=== PATIENT | male | born 1930 | race African-American/Black ===

== ENCOUNTER → 2016-07-28 | Outpatient (CLI) | payer OTHER ==
[~2016-07-28] MED LIST: ALDACTONE25 MG PO; APAP650 PO; ATENOLOL 25 MG25 M1 PO; CLARITIN10 M2 PO; CLEOCIN HCL150 MG PO; COUMADIN 4 MG TA4 M1 PO; COUMADIN 5 MG TA5 M1 PO; DIAZEPAM 5 MG5 M1 PO; FLOVENT HFA 1110 MCG INH; GLUCOSAMINE; HYDROCHLOROTHIA25 M1 PO; HYDROCHLOROTHIA25 M2 PO; MULTIVITAMINS; NEXIUM; NEXIUM40 MG PO; NITRO-DUR 0.1M0.1 M1 TD; NITRODUR; NITROSTAT0.4 MG; NORCO 5-325 TA1 EACH PO; OXYCODON-ACETA1 EAC1 PO; PREDNISONE 5 MG5 M1 PO; VIAGRA50 MG PO; XALATAN2.5 ML OPHTHALMIC; ZANTAC 150MG T150 M1 PO
== END ==
LOC: RAD 13:23
DX: J18.9 Pneumonia, unspecified organism (principal); R06.00 Dyspnea, unspecified; J98.4 Other disorders of lung

== ENCOUNTER 2016-12-02 11:49 | Inpatient (IN) | payer OTHER ==
[2016-12-02] VITALS (12 sets, daily range): BP systolic 91–146; BP diastolic 58–84
[~2016-12-02] VITALS: Ht 152.4 cm; Wt 115.0 kg
--- NOTE | ~2016-12-02 | HC ---
[facility] [place] [address] CONSULTATION Name: TRACY REDDY Room #: 215-P ADM IN M.R.#: [id number] Admission: 12/02/16 Attend Phys: Jadon Robertson MD Discharge: Date of : 32 Report #: [id number] THIS REPORT FOR: //name// CC: Jadon Mondragon MD DATE OF SERVICE: 12/03/2016 HISTORY OF PRESENT ILLNESS: The patient is an 86-year-old black male who I was asked to see in the hospital today after he was noted to be in atrial fibrillation. The patient has an extensive past medical history. He has a history of permanent atrial fibrillation and has been followed by Dr. Benavides, a organisational psychologist in [place], [place]. The patient has a history of DVT and pulmonary embolus. He has been chronically anticoagulated. He had been on atenolol for rate control of his atrial fibrillation. He denies ever having cardioversion. He apparently saw Dr. Benavides several months ago and because of slow rate of atrial fibrillation, was taken off of atenolol. He has felt well since that time. He is not very active because of his age and uses a cane. Recently, he noticed a dark stool. He had had a previous colonoscopy in 2012 and had a polyp removed. He was scheduled to have repeat colonoscopy. However, yesterday, the patient had a meeting when he had the sudden onset of pain in his right thigh after walking up a flight of stairs. His whole right leg then felt painful. He had difficulty standing on leg. He called an ambulance and was brought here to [facility]. His INR was 2.6. His right leg was numb. He was found to have thrombosis of the right femoral artery. Yesterday, he underwent right femoral artery embolectomy by Dr. Springer. I was asked to see him for further evaluation and treatment. He denies any history of myocardial infarction or chest pain. He does get short of breath when he exerts himself. He has chronic edema. He denies any palpitations, lightheadedness. PAST MEDICAL HISTORY: Otherwise significant for prostate surgery, hernia repair, cataract extraction, rotator cuff surgery. He had a kidney repair in the past. He has had tonsillectomy. He has a history of sleep apnea, but cannot tolerate CPAP, so he is on oxygen at night time. He does have a history of hypertension, chronic back pain. MEDICATIONS: Consists of Ventolin inhaler, hydrochlorothiazide, spironolactone, warfarin and oxycodone. ALLERGIES: HE HAS PREVIOUS INTOLERANCE TO DEMEROL. FAMILY HISTORY: His father of heart attack. SOCIAL HISTORY: He is . He and his live in [place], [place]. 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 Quit smoking years ago, rarely drinks alcohol. [facility] [address] [place] [address] CONSULTATION Name: TRACY REDDY RODOLFO Room #: 215-P [facility] IN M.R.#: [id number] Admission: 12/02/16 Attend Phys: Jadon Robertson MD Discharge: Date of : 32 Report #: [id number] REVIEW OF SYSTEMS: He is overweight, standing 5 feet 7 inches, weighing 260 pounds. He has no history of stroke, peptic ulcer disease, liver disease. He had prostate cancer in the past. No psychiatric illness. PHYSICAL EXAMINATION: GENERAL: Revealed a large, elderly male lying in bed. He appeared in no distress. VITAL SIGNS: He had a blood pressure of 120/80, pulse is 70, he is afebrile. HEENT: He was anicteric. Conjunctivae pink. Mucous membranes appeared moist. NECK: Veins difficult to assess due to obesity. CHEST: Clear to auscultation. CARDIOVASCULAR: Irregular rhythm. ABDOMEN: Obese, soft, nontender. EXTREMITIES: Had pitting edema. Dorsalis pedis pulse 2+ left, cannot palpate right. SKIN: Warm, dry. NEUROLOGIC: Nonfocal. PSYCHIATRIC: His mood is appropriate. His ECG on admission yesterday showed atrial fibrillation with a controlled ventricular response rate. Compared to previous ECG in 01/2011, atrial fibrillation is new. His workup, he had a previous nuclear stress test in 2012 that showed no ischemia. Echocardiogram in 2013 showed ejection fraction of 60%, left atrial enlargement with mild aortic insufficiency and tricuspid insufficiency. His arterial Doppler done yesterday on an emergent basis showed a proximal arterial occlusion of the right common iliac or external iliac artery. Venous duplex scan showed no DVT. He had a CTA of the leg that showed a cyst on the kidney, patent abdominal aorta, tortuous iliacs, right common femoral artery contained a large embolus. He had a chest x-ray done in July of this year that showed scarring of the lung. His lab work: Sodium 142, creatinine 1.1. His INR on admission yesterday was only 1.2. His white blood cell count on admission yesterday was 3.9. His hemoglobin is 14.3, platelet count 161,000. IMPRESSION AND RECOMMENDATIONS: 1. Right femoral artery thrombosis, suspect secondary to embolus from permanent atrial fibrillation. Recommend anticoagulation. The patient required embolectomy. 2. Permanent atrial fibrillation. Rate controlled. He will need anticoagulation, maintain INR of 2-3. 3. History of deep venous thrombosis and pulmonary embolism. Recommend chronic anticoagulation. 4. Hypertension. The patient has been on diuretics. 5. Chronic edema. The patient is on diuretics. 6. Obesity. [facility] [address] [place] [address] CONSULTATION Name: TRACY REDDY RODOLFO Room #: 215-P [facility] IN M.R.#: [id number] Admission: 12/02/16 Attend Phys: Jadon Robretson MD Discharge: Date of : 32 Report #: [id number] 7. Sleep apnea. The patient is on nocturnal oxygen. 8. History of prostate cancer. 9. History of dark stools. The patient is not anemic. He eventually will need a colonoscopy. 10. History of colon polyp. <ELECTRONICALLY SIGNED> By: aJden Diggs MD, FACC 12/06/16 1001 1706 1800 Jaden Diggs MD, FACC /nt
--- NOTE | ~2016-12-02 | EKG ---
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
--- NOTE | ~2016-12-02 | O ---
[facility] [place] [address] OPERATIVE REPORT Name: TRACY REDDY Room #: 215-P ADM IN M.R.#: [id number] Admission: 12/02/16 Attend Phys: Jadon Robertson MD Discharge: Date of : 32 Report #: [id number] THIS REPORT FOR: //name// CC: Geoff Benavides Jr, MD [facility] Jadon Mondragon DATE OF SERVICE: 12/02/2016 PREOPERATIVE DIAGNOSES: 1. Acute right lower extremity ischemia. 2. Right common femoral artery and profunda femoral artery embolus. FINAL DIAGNOSES: 1. Acute right lower extremity ischemia. 2. Right common femoral artery and profunda femoral artery embolus. OPERATIVE PROCEDURE PERFORMED: Right femoral endarterectomy. SURGEON: Evelio Springer M.D. RECEIVABLE EXECUTIVE: Chen. ANESTHESIA: General. OPERATIVE INDICATIONS: The patient is an 86-year-old -Tunis[place] male with a known history of atrial fibrillation. The patient has been on warfarin chronically. However, his INR was subtherapeutic at 1.2. He has presented to the emergency room with acute onset of numbness and weakness of his right leg. On examination, the leg was cool, but not ice cold compared to the left leg. Doppler signals were not discernible. The patient did have intact motor function, but significant weakness and also some degree of sensory function. Arterial duplex examination of the extremities showed evidence of thrombus in the common femoral, profunda femoral, and superficial femoral arteries with evidence of three-vessel runoff. The patient was brought to the operating room now emergently for femoral artery embolectomy. OPERATIVE SUMMARY: The patient was brought into the operating room and placed on the OR table in supine position. General anesthesia was induced. The patient was prepped and draped in sterile fashion with chlorhexidine. An oblique incision was made in the right groin. We dissected down through subcutaneous tissues. We incised the femoral sheath and exposed the common, superficial, and profunda femoral arteries. The patient was given a dose of 15,000 units of heparin. We encircled the profunda femoral and the superficial femoral artery with vessel loops. The common femoral artery was clamped and then the profunda and superficial femoral. We incised the artery and we were [address] [address] OPERATIVE REPORT Name: TRACY REDDY Room #: 215-P [facility] IN [facility].#: [id number] Admission: 12/02/16 Attend Phys: Jadon Robertson MD Discharge: Date of : 32 Report #: [id number] immediately encountered fresh thrombus. We then passed #4 and #5 embolectomy catheters distally in the SFA making multiple passes until we obtained good backbleeding. Likewise, we made multiple passes in the profunda femoral artery until brisk backbleeding was encountered as well. Lastly, the common femoral artery was embolectomized with a #5 embolectomy catheter. Organized thrombus was removed from this vessel as it was from the profunda and superficial femoral arteries. Once we had good inflow, we flushed all artery sites with heparinized saline solution. We then closed the arteriotomy in a running fashion with 5-0 Prolene suture. Prior to completing the closure, the site was flushed both retrograde and antegrade and deaired. Flow was then restored down the profunda femoral artery and then finally the superficial femoral artery. Excellent Doppler signals were noted in the profunda and superficial femoral arteries. Protamine was given to reverse the heparin. Once satisfactory hemostasis was achieved, we closed the wound in multiple layers with absorbable suture. The procedure was completed, the patient was taken to the ICU in stable condition. The operative blood loss was approximately 200 mL. No intraoperative complications were noted and all sponge and needle counts were reported as correct. <ELECTRONICALLY SIGNED> By: Evelio Springer MD 12/09/16 1827 1650 1740 Evelio Springer MD /nt
--- NOTE | ~2016-12-02 | S ---
[facility] [place] [address] SURGICAL PATH RPT PROCEDURE Name: TRACY REDDY [facility] Room #: 215-P ADM IN M.R.#: [id number] Admission: 12/02/16 Date of : 32 Discharge: Report #: [id number] Path Case #: [id number] PATHOLOGY REPORT COLLECTION DATE: 12/02/2016 RECEIVED DATE: 12/03/2016 SUBMITTING PHYS: Dr. Evelio Springer OTHER PHYS: Dr. Jadon Mondragon SPECIMEN(S) RECEIVED: A.Thrombus right femoral artery * * * * * * * * * * * * FINAL DIAGNOSIS: Thrombus, right femoral artery, removal: - Consistent with a thrombus. (IUV:mml; 12/06/2016) PATHOLOGIST: Mellisa Castano M.D. REPORT ELECTRONICALLY SIGNED BY: Mellisa Castano M.D. DATE/TIME: 12/06/2016 15:58 * * * * * * * * * * * * GROSS PATHOLOGY: The specimen is received in formalin, labeled "Tracy Reddy thrombus right femoral artery". Received are multiple tubelike segments of dark redtan, soft tissue ranging in length from 0.4 cm to 1.8 cm and are approximately 0.5 cm in diameter. Sectioning reveals a dark red, hemorrhagic cut surface. Engraver Block sections are submitted in cassette A1. (SNA; 12/03/2016) CLINICAL HISTORY: Embolus right femoral artery INITIAL CPT CODE(S): A; 59048 Professional services performed by [facility] at [facility] [address] [place] [address] Technical services performed by [facility] at [address] [place] [address]. [facility] [address] [place] [address] SURGICAL PATH RPT PROCEDURE Name: TRACY REDDY Room #: 215-P [facility] IN .R.#: [id number] Admission: 12/02/16 Date of : 32 Discharge: Report #: [id number] Path Case #: [id number] [facility] [address] [place] [id number] PHONE: [phone] DIRECTOR: Bhargav Garcia M.D. * * * END OF REPORT * * *
--- NOTE | ~2016-12-02 | 2DMMODE ---
[facility] [address] [employer] [place] [address] 2 D/M-MODE ECHOCARDIOGRAM Name: TRACY REDDY Room #: 215-P ADM IN M.R.#: [id number] Admission: 12/02/16 Attend Phys: Jadon Robretson Discharge: Date of : 32 Date of Service: 12/07/16 1237 Report #: [id number] THIS REPORT FOR: //name// ADDENDUM APPROVED REPORT Study performed: 12/06/2016 13:34:58 EXAM: Comprehensive 2D, Doppler, and color-flow Echocardiogram Patient Location: Bedside Room #: 215 Status: routine BSA: 2.32 BP: 139/80 mmHg Other Information Study Quality: Technically Difficult Indications Atrial Fibrillation Hypertension/HDD 2D Dimensions RVDd: 26.77 mm LVEF(%): 61.08 (>50%) IVSd: 13.02 (7-11mm) LVOT Diam: 16.61 (18-24mm) LVDd: 43.63 mm PWd: 13.40 (7-11mm) LVDs: 29.45 (25-40mm) Aortic Root: 20.58 mm IVC: 14.00 mm Bustillos's LVEF: 61.08 % Volumes Left Atrial Volume (Systole) Single Plane 4CH: 66.53 mL Single Plane 2CH: 53.18 mL LA ESV Index: 28.00 mL/m2 Aortic Valve AoV Peak Cesar.: 1.56 m/s AO Peak Gr.: 9.69 mmHg LVOT Max P.68 mmHg LVOT Max V: 1.08 m/s ANSHU Vmax: 1.51 cm2 Mitral Valve MV Decel. Time: 231.45 ms MV E Max Cesar.: 1.02 m/s [facility] [address] [place] [address] 2 D/M-MODE ECHOCARDIOGRAM Name: TRACY REDDY [facility] Room #: 215-P [facility] IN M.R.#: [id number] Admission: 12/02/16 Attend Phys: Jadon Robertson Discharge: Date of : 32 Date of Service: 12/07/16 1237 Report #: [id number] IVRT: 131.49 ms Pulmonary Valve PV Peak Cesar.: 0.87 m/s PV Peak Gr.: 3.03 mmHg Tricuspid Valve TR Peak Cesar.: 2.51 m/s RAP Estimate: 5.00 mmHg TR Peak Gr.: 25.28 mmHg Left Ventricle The left ventricle is normal size. Regional wall motion is not well visualized but grossly normal. Mild concentric left ventricular hypertrophy. The overall left ventricular systolic function appears normal. No left ventricular thrombus noted. LVEF is 65%. This study is not technically sufficient to allow evaluation of the LV diastolic function due to atrial fibrillation. Right Ventricle The right ventricle is normal size. The right ventricular systolic function is normal. Atria Left atrium is at the upper limits of normal. The right atrium size is normal. Aortic Valve The aortic valve is not well visualized. Mild to moderate aortic regurgitation. There is no aortic valvular stenosis. Mitral Valve Moderately calcified anterior mitral leaflet Mild mitral regurgitation. No evidence of mitral valve stenosis. Tricuspid Valve The tricuspid valve is normal in structure. There is trace to mild tricuspid regurgitation. The right atrial pressure is estimated at 5 mmHg. PAP is estimated at 30 mmHg. Pulmonic Valve Pulmonic valve is not well visualized. Great Vessels The aortic root is normal in size. IVC is normal in size and collapses >50% with inspiration. Pericardium [facility] [address] [place] [address] 2 D/M-MODE ECHOCARDIOGRAM Name: TRACY REDDY Room #: 215-P [facility] IN M.R.#: [id number] Admission: 12/02/16 Attend Phys: Jadon Robertson Discharge: Date of : 32 Date of Service: 12/07/16 1237 Report #: [id number] There is no pericardial effusion. <Conclusion> The overall left ventricular systolic function appears normal. Regional wall motion is not well visualized but grossly normal. LVEF is 65%. The aortic valve is not well visualized. No aortic valvular stenosis. Mild to moderate aortic regurgitation. Moderately calcified anterior mitral leaflet. Mild mitral regurgitation. Pulmonary artery pressure of 30-35mmHg There is no pericardial effusion. No visualized LV thrombus <ELECTRONICALLY SIGNED> By: Micah Dumont MD, FACC 12/07/16 1237 1237 1237 Micah Dumont MD, FACC /INF
--- NOTE | ~2016-12-02 | EKG ---
[address] [address] ELECTROCARDIOGRAM REPORT Name: MOHINI REDDYMIE RODOLFO Room #: 215- ADM IN M.R.#: [id number] Admission: 12/02/16 Attend Phys: Jadon Robertson MD Discharge: Date of : 32 Report #: [id number] THIS REPORT FOR: //name// [facility] Test Date: 2016-12-09 Test Time: 08:41:02 Pat Name: TRACY REDDY Department: Room: 215 P Gender: M Door Opener: : 1930 Requested By: Jadon Robertson Order Number: [id number] MD: Polo Zamarripa Measurements Intervals [place] Rate: 63 P: [place]: QRS: -14 QRSD: 91 T: 30 QT: 417 QTc: 427 Interpretive Statements Atrial fibrillation Abnormal R-wave progression, early transition Nonspecific ST and T wave abnormality Compared to ECG 12/02/2016 11:57:14 No significant change was found Electronically Signed On 12-09-2016 9:10:22 CDT by Polo Zamarripa [email or web address] <ELECTRONICALLY SIGNED> By: Polo Zamarripa MD, [facility] 12/09/16 0910 0841 0841 Polo Zamarripa MD, [facility] /EPI
[2016-12-02] MEDS ORDERED: COMBIVENT INH (12:08)
[2016-12-02 12:19] LABS: INR 1.2; PROTIME 12.7 Seconds (9.3-11.4)
[2016-12-02 13:19] LABS: ABSOLUTE NEUTROPHILS 2.2 thou/uL (1.4-8.2); BASOPHILS 0.9 % (0.0-2.0); EOSINOPHILS 1.7 % (0.0-3.0); HEMATOCRIT 41.4 % (42.0-52.0); HEMOGLOBIN 14.3 gm/dL (14.0-18.0); MCH 32.9 pg (26.0-34.0); MCHC 34.5 g/dL (28.0-37.0); MCV 95.4 fL (80.0-100.0); MONOCYTES 5.2 % (1.0-8.0); PLATELET COUNT 162 thou/uL (150-400); POLYS 55.2 % (36.0-66.0); RBC 4.34 mil/uL (4.50-6.00); RDW 13.7 % (10.5-14.5); WBC 3.9 thou/uL (4.0-11.0)
[2016-12-02 13:20] LABS: MANUAL DIFF NO
[2016-12-02 13:22] LABS: CALCIUM 9.4 mg/dL (8.5-10.1); CREATININE 1.3 mg/dL (0.7-1.3); POTASSIUM 3.8 mmol/L (3.5-5.1)
[2016-12-03] VITALS (24 sets, daily range): BP systolic 105–139; BP diastolic 55–76
[2016-12-03 04:39] LABS: HEMATOCRIT 42.1 % (42.0-52.0); HEMOGLOBIN 14.5 gm/dL (14.0-18.0); MCH 33.1 pg (26.0-34.0); MCHC 34.5 g/dL (28.0-37.0); MCV 95.9 fL (80.0-100.0); RBC 4.39 mil/uL (4.50-6.00); RDW 13.9 % (10.5-14.5); WBC 9.2 thou/uL (4.0-11.0)
[2016-12-03 04:48] LABS: CALCIUM 9.1 mg/dL (8.5-10.1); CREATININE 1.1 mg/dL (0.7-1.3); POTASSIUM 4.1 mmol/L (3.5-5.1)
[2016-12-03 10:52] LABS: INR 1.2; PROTIME 12.4 Seconds (9.3-11.4)
[2016-12-04] VITALS (7 sets, daily range): BP systolic 115–139; BP diastolic 65–665
[2016-12-04 06:04] LABS: ABSOLUTE NEUTROPHILS 9.4 thou/uL (1.4-8.2); BASOPHILS 0.4 % (0.0-2.0); EOSINOPHILS 0.3 % (0.0-3.0); HEMATOCRIT 39.9 % (42.0-52.0); HEMOGLOBIN 13.6 gm/dL (14.0-18.0); LYMPHOCYTES 13.9 % (24.0-44.0); MCH 32.6 pg (26.0-34.0); MCV 95.9 fL (80.0-100.0); MONOCYTES 4.9 % (1.0-8.0); PLATELET COUNT 148 thou/uL (150-400); POLYS 80.5 % (36.0-66.0); RBC 4.16 mil/uL (4.50-6.00); RDW 14.2 % (10.5-14.5); WBC 11.7 thou/uL (4.0-11.0)
[2016-12-04 06:08] LABS: MANUAL DIFF NO
[2016-12-04 06:16] LABS: INR 1.2; PROTIME 11.9 Seconds (9.3-11.4)
[2016-12-04 06:26] LABS: ALBUMIN 3.1 g/dL (3.4-5.0); CALCIUM 9.2 mg/dL (8.5-10.1); TOTAL BILIRUBIN 0.5 mg/dL (<0.1-1.0)
[2016-12-04 06:27] LABS: CHOLESTEROL 186 mg/dL (<200); HDL CHOLESTEROL 85 mg/dL (>40); LDL CHOLESTEROL 95 mg/dL (<100); TC:HDL 2.2 Ratio (Not establshd); TRIGLYCERIDE 34 mg/dL (<150); VLDL 7 mg/dL (<40)
[2016-12-04 06:28] LABS: SERUM ASSESSMENT Clear
[2016-12-05 04:21] VITALS: BP 133/75
[2016-12-05 05:03] LABS: HEMATOCRIT 40.2 % (42.0-52.0); HEMOGLOBIN 13.9 gm/dL (14.0-18.0); MCH 32.8 pg (26.0-34.0); MCHC 34.6 g/dL (28.0-37.0); MCV 94.9 fL (80.0-100.0); RBC 4.23 mil/uL (4.50-6.00); RDW 13.8 % (10.5-14.5); WBC 7.1 thou/uL (4.0-11.0)
[2016-12-05 05:15] LABS: INR 1.3; PROTIME 12.9 Seconds (9.3-11.4)
[2016-12-05 08:15] VITALS: BP 130/58
[2016-12-05 12:30] VITALS: BP 130/65
[2016-12-05 16:01] VITALS: BP 142/70
[2016-12-05 20:21] VITALS: BP 115/64
[2016-12-06 05:34] VITALS: BP 132/77
[2016-12-06 06:22] LABS: HEMATOCRIT 40.8 % (42.0-52.0); HEMOGLOBIN 13.8 gm/dL (14.0-18.0); MCH 32.2 pg (26.0-34.0); MCHC 33.9 g/dL (28.0-37.0); MCV 94.8 fL (80.0-100.0); RBC 4.3 mil/uL (4.50-6.00); RDW 13.5 % (10.5-14.5); WBC 6.3 thou/uL (4.0-11.0)
[2016-12-06 06:28] LABS: CALCIUM 9.2 mg/dL (8.5-10.1); POTASSIUM 3.4 mmol/L (3.5-5.1)
[2016-12-06 06:56] LABS: INR 1.3; PROTIME 13.4 Seconds (9.3-11.4)
[2016-12-06 08:01] VITALS: BP 139/80
[2016-12-06 15:30] VITALS: BP 149/76
[2016-12-06 19:56] VITALS: BP 116/74
[2016-12-07 03:33] LABS: APTT 55.6 Seconds (24.5-32.8); INR 1.5; PROTIME 15.6 Seconds (9.3-11.4)
[2016-12-07 03:51] LABS: CALCIUM 9.7 mg/dL (8.5-10.1); CREATININE 1.1 mg/dL (0.7-1.3); POTASSIUM 3.6 mmol/L (3.5-5.1)
[2016-12-07 04:06] LABS: ABSOLUTE NEUTROPHILS 3.1 thou/uL (1.4-8.2); BASOPHILS 0.5 % (0.0-2.0); EOSINOPHILS 3.7 % (0.0-3.0); HEMATOCRIT 42.2 % (42.0-52.0); HEMOGLOBIN 14.3 gm/dL (14.0-18.0); LYMPHOCYTES 39.3 % (24.0-44.0); MCH 32.4 pg (26.0-34.0); MCV 95.4 fL (80.0-100.0); MONOCYTES 7.6 % (1.0-8.0); PLATELET COUNT 180 thou/uL (150-400); POLYS 48.9 % (36.0-66.0); RBC 4.43 mil/uL (4.50-6.00); RDW 13.8 % (10.5-14.5); WBC 6.3 thou/uL (4.0-11.0)
[2016-12-07 04:10] LABS: MANUAL DIFF NO
[2016-12-07 04:24] VITALS: BP 1369/87
[2016-12-07 08:01] VITALS: BP 136/79
[2016-12-07 11:37] VITALS: BP 123/75
[2016-12-07 16:26] VITALS: BP 113/74
[2016-12-07 16:33] VITALS: BP 132/66
[2016-12-07 20:25] VITALS: BP 124/81
[2016-12-08 03:23] LABS: INR 1.8; PROTIME 18.7 Seconds (9.3-11.4)
[2016-12-08 03:48] VITALS: BP 138/72
[2016-12-08 08:21] VITALS: BP 158/81
[2016-12-08 11:55] VITALS: BP 117/65
[2016-12-08 16:31] VITALS: BP 140/64
[2016-12-08 19:54] VITALS: BP 136/66
[2016-12-09 03:16] VITALS: BP 132/55
[2016-12-09 03:36] LABS: ABSOLUTE NEUTROPHILS 2.8 thou/uL (1.4-8.2); BASOPHILS 0.7 % (0.0-2.0); EOSINOPHILS 4.2 % (0.0-3.0); HEMATOCRIT 41.9 % (42.0-52.0); HEMOGLOBIN 14.6 gm/dL (14.0-18.0); LYMPHOCYTES 38.7 % (24.0-44.0); MCH 32.8 pg (26.0-34.0); MCHC 34.8 g/dL (28.0-37.0); MCV 94.2 fL (80.0-100.0); MONOCYTES 8.8 % (1.0-8.0); PLATELET COUNT 185 thou/uL (150-400); POLYS 47.6 % (36.0-66.0); RBC 4.45 mil/uL (4.50-6.00); RDW 13.7 % (10.5-14.5); WBC 5.9 thou/uL (4.0-11.0)
[2016-12-09 03:39] LABS: MANUAL DIFF NO
[2016-12-09 03:51] LABS: CALCIUM 9.7 mg/dL (8.5-10.1); CREATININE 1.2 mg/dL (0.7-1.3); MAGNESIUM 1.5 mg/dL (1.8-2.4); POTASSIUM 3.7 mmol/L (3.5-5.1)
[2016-12-09 03:54] LABS: PROTIME 28.5 Seconds (9.3-11.4)
[2016-12-09 04:08] LABS: INR 2.8
[2016-12-09 07:15] VITALS: BP 128/78
[2016-12-09 07:54] VITALS: BP 137/98
[2016-12-09] MEDS ORDERED: COUMADIN7.5 MG PO (11:15)
[2016-12-09] MEDS ORDERED: DUONEB 2.5-0.5 M3 ML INH (11:15)
[2016-12-09] MEDS ORDERED: CASODEX 50 MG T50 M1 PO (11:15)
[2016-12-09] MEDS ORDERED: ALLOPURINOL 10100 M2 PO (11:15)
[2016-12-09 11:32] VITALS: BP 128/78
== END 2016-12-09 19:00 | DRG 270 ==
LOC: ER 11:49 → ICU 17:44 → EROBS 17:44 → 4W 18:43 → TBACV 19:23 → ICU 21:21 → 2N 12-03 14:04
PROVIDERS: Emergency Medicine; Hospitalist; Internal Medicine; Internal Medicine Cardiovascular Disease; Internal Medicine Endocrinology, Diabetes & Metabolism; Nurse Practitioner; Nurse Practitioner Acute Care
PROC: 04CK3ZZ Extirpation of Matter from Right Femoral Artery, Percutaneous Approach (ICD-10-PCS; principal; 2016-12-02)
DX: I74.3 Embolism and thrombosis of arteries of the lower extremities (principal); N17.0 Acute kidney failure with tubular necrosis; Z68.42 Body mass index [BMI] 45.0-49.9, adult; I10 Essential (primary) hypertension; E66.9 Obesity, unspecified; N40.0 Benign prostatic hyperplasia without lower urinary tract symptoms; G47.33 Obstructive sleep apnea (adult) (pediatric); E11.51 Type 2 diabetes mellitus with diabetic peripheral angiopathy without gangrene; I48.2 Chronic atrial fibrillation; C61 Malignant neoplasm of prostate; D69.6 Thrombocytopenia, unspecified; Z79.01 Long term (current) use of anticoagulants; Z79.899 Other long term (current) drug therapy; Z92.21 Personal history of antineoplastic chemotherapy; Z86.718 Personal history of other venous thrombosis and embolism; Z87.891 Personal history of nicotine dependence; Z86.711 Personal history of pulmonary embolism; Z90.79 Acquired absence of other genital organ(s); Z88.8 Allergy status to other drugs, medicaments and biological substances; Z82.49 Family history of ischemic heart disease and other diseases of the circulatory system
CPT/HCPCS: 10078; 10081; 50010; 50101; 50386; 50417; 50455; 51165; 51301; 55264; 56524; 56526; 56527; 62110; 62900; 70005

== ENCOUNTER 2016-12-20 23:44 | Emergency (ER) | payer OTHER ==
[~2016-12-20] VITALS: Ht 172.7 cm; Wt 113.0 kg
--- NOTE | ~2016-12-20 | EKG ---
[address] [place] [address] ELECTROCARDIOGRAM REPORT Name: TRACY REDDY RODOLFO Room #: 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 : 1930 Requested By: Tressa Knight Order Number: [id number] MD: Polo Zamarripa Measurements Intervals [place] Rate: 84 P: [place]: QRS: -14 QRSD: 96 T: 22 QT: 370 QTc: 438 Interpretive Statements Atrial fibrillation Abnormal R-wave progression, early transition Baseline wander in lead(s) V6 Compared to ECG 12/09/2016 08:41:02 No significant change was found Electronically Signed On 12-21-2016 17:53:49 CDT by Polo Zamarripa [email or web address] <ELECTRONICALLY SIGNED> By: Polo Zamarripa MD, [facility] 12/21/16 1613 2355 6985 Polo Zamarripa MD, [facility] /EPI
[~2016-12-20 23:44] MED LIST changes: +ALLOPURINOL 10100 M2 PO; +CASODEX 50 MG T50 M1 PO; +COMBIVENT INH; +COUMADIN7.5 MG PO; +DUONEB 2.5-0.5 M3 ML INH
[2016-12-21 00:17] LABS: ABSOLUTE NEUTROPHILS 2.1 thou/uL (1.4-8.2); BASOPHILS 1.1 % (0.0-2.0); EOSINOPHILS 3.5 % (0.0-3.0); HEMATOCRIT 41.7 % (42.0-52.0); HEMOGLOBIN 14.5 gm/dL (14.0-18.0); LYMPHOCYTES 47.7 % (24.0-44.0); MCH 32.6 pg (26.0-34.0); MCHC 34.8 g/dL (28.0-37.0); MCV 93.6 fL (80.0-100.0); MONOCYTES 6.9 % (1.0-8.0); PLATELET COUNT 195 thou/uL (150-400); POLYS 40.8 % (36.0-66.0); RBC 4.46 mil/uL (4.50-6.00); RDW 13.7 % (10.5-14.5); WBC 5.1 thou/uL (4.0-11.0)
[2016-12-21 00:20] LABS: MANUAL DIFF NO
[2016-12-21 00:26] LABS: ANION GAP 8 mmol/L (7-16); BUN 18 mg/dL (7-18); CALCIUM 9.7 mg/dL (8.5-10.1); CHLORIDE 103 mmol/L (98-107); CO2 28 mmol/L (21-32); CREATININE 1.1 mg/dL (0.7-1.3); GLUCOSE 107 mg/dL (74-106); POTASSIUM 3.6 mmol/L (3.5-5.1); SODIUM 139 mmol/L (136-145)
[2016-12-21 00:31] LABS: APTT 27.8 Seconds (24.5-32.8); INR 1.1; PROTIME 11.7 Seconds (9.3-11.4)
[2016-12-21 00:35] LABS: TROPONIN-I < 0.04 ng/mL (<0.04-0.07)
[2016-12-21 03:44] VITALS: BP 136/63
== END 2016-12-21 03:47 | disposition home or self-care (01) ==
LOC: ER 23:44
PROVIDERS: Emergency Medicine
DX: M79.604 Pain in right leg (principal); R79.1 Abnormal coagulation profile; I10 Essential (primary) hypertension; I48.91 Unspecified atrial fibrillation; M17.0 Bilateral primary osteoarthritis of knee; Z85.46 Personal history of malignant neoplasm of prostate; Z98.890 Other specified postprocedural states; Z87.891 Personal history of nicotine dependence; Z88.1 Allergy status to other antibiotic agents

== ENCOUNTER → 2017-02-08 | Outpatient (CLI) | payer OTHER | LOC: ULTRA 12:18 | DX: R60.9 Edema, unspecified (principal); M79.89 Other specified soft tissue disorders ==

== ENCOUNTER → 2017-06-16 | Outpatient (CLI) | payer OTHER ==
[~2017-06-16] VITALS: Ht 172.7 cm; Wt 108.9 kg
[~2017-06-16] MED LIST changes: +ALLOPURINOL 10100 M3 PO; +CHOLESTYRAMINE P4 GM PO; +ELIQUIS5 MG PO; +FLAX SEED OIL1000 MG PO; -FLOVENT HFA 1110 MCG INH; +FLOVENT HFA 4444 MCG INH; +GLUCOSAMINE S1000 M3 PO; +MEGA MULTIVIT1 EAC1 PO; +NITRO-DUR 0.1M0.1 M1 TOP; -NITRODUR; -NITROSTAT0.4 MG; +NITROSTAT0.4 MG SUBLING; +OMEPRAZOLE40 MG PO; +OXYCODONE HCL 55 MG PO; +RED YEAST RICE600 M1 PO
--- NOTE | ~2017-06-16 | P ---
[facility] [place] [address] PROCEDURE REPORT Name: TRACY REDDY Room #: REG [facility]#: [id number] Admission: 06/16/17 Attend Phys: Mario Alberto Diaz MD Discharge: Date of : 32 Report #: [id number] THIS REPORT FOR: //name// CC: Dr. Silas Benavides Jr, MD [facility] Silas Mondragon OUTPATIENT UPPER ENDOSCOPY REPORT BRIEF HISTORY: The patient is an 87-year-old male who is on anticoagulation due to pulmonary emboli and AFib. He has had intermittent black stools. He has also had problems with diarrhea. There is a prior history of ulcer disease. He also has reflux disease. PREOPERATIVE DIAGNOSIS: Intermittent black stools and diarrhea. POSTOPERATIVE DIAGNOSIS: Modest diffuse gastritis without ulcers. MEDICATIONS: Deep sedation with propofol per anesthesia. SPECIMENS: 1. Small bowel biopsies to rule out celiac disease. 2. Biopsies of gastritis to rule out H. pylori. ESTIMATED BLOOD LOSS: 3 mL. PROCEDURE: EGD with biopsy. FINDINGS: Prior to propofol sedation, procedure of upper endoscopy was discussed with the patient as well as potential risks and its complications. He indicates he understands and desires to proceed. DESCRIPTION OF PROCEDURE: With the patient in left lateral decubitus position, the Freebeepayi video endoscope was inserted in the cervical esophagus under direct vision without difficulty. Examination of this organ through its entire length revealed normal esophageal mucosa down the squamocolumnar junction. The squamocolumnar junction was inspected and noted to be unremarkable. No ulcers or erosions were seen. There is no evidence of King's mucosa. A significant hiatus hernia was not seen. Strictures were not seen. Scope was advanced in the stomach, was examined on end view as well as retroflexed views. There was an erythematous antral gastritis. No ulcers were seen. No bleeding lesions were seen. Vascular ectasias were not seen. Upon retroflexion, no abnormalities were seen. Specifically, a mass was not seen in the cardia. The pylorus, duodenal bulb and postbulbar sweep were all inspected and noted to be within normal limits. At that point, the scope was withdrawn and careful [address] [address] PROCEDURE REPORT Name: TRACY REDDY RODOLFO Room #: REG [facility].#: [id number] Admission: 06/16/17 Attend Phys: Mario Alberto Diaz MD Discharge: Date of : 32 Report #: [id number] circumferential views confirmed the above findings. The patient tolerated the procedure well. CONDITION OF THE PATIENT UPON DISCHARGE: Following procedure, the patient was drowsy and arousable. He was then prepared for colonoscopy. INSTRUCTIONS TO THE PATIENT AND FAMILY AT THE TIME OF DISCHARGE: I do not see any bleeding lesions or ulcer disease. We will follow up on biopsies obtained today. If he has further black stools, would suggest obtaining hemoglobin as well as stool Hemoccult. He does have diarrhea at this point in time, should continue his cholestyramine. We will proceed with colonoscopy at this time. <ELECTRONICALLY SIGNED> By: Mario Alberto Diaz MD 06/16/17 0916 0759 0905 Mario Alberto Diaz MD /nt
--- NOTE | ~2017-06-16 | S ---
[facility] [place] [address] SURGICAL PATH RPT PROCEDURE Name: MOHINI REDDYMIE RODOLFO Room #: REG [facility]#: [id number] Admission: 06/16/17 Date of : 32 Discharge: Report #: [id number] Path Case #: [id number] PATHOLOGY REPORT COLLECTION DATE: 06/16/2017 RECEIVED DATE: 06/16/2017 SUBMITTING PHYS: Dr. Mario Alberto Diaz OTHER PHYS: Dr. Geoff Mondragon SPECIMEN(S) RECEIVED: A.Small bowel bx B.Gastritis C.Random colon bx * * * * * * * * * * * * FINAL DIAGNOSIS: A. Small bowel bx: - Duodenal mucosa with intact villous architecture and no increase in intraepithelial lymphocytes. B. Gastritis: - Mild chronic inactive gastritis. - Small detached foci of intestinal metaplasia present; negative for dysplasia. - An H. pylori immunostain is negative (Block B1; appropriately reactive control). C. Random colon bx: - Fragments of unremarkable colonic mucosa. - No evidence of microscopic colitis or inflammatory bowel disease. PATHOLOGIST: Evelio Garcia M.D. REPORT ELECTRONICALLY SIGNED BY: Evelio Garcia M.D. DATE/TIME: 06/17/2017 08:43 * * * * * * * * * * * * GROSS PATHOLOGY: A. Received in formalin labeled "Tracy Reddy Sr, small bowel rule out celiac" is a 1.2 x 0.5 x 0.1 cm aggregate of zambrano-brown soft tissue. The specimen is submitted in cassette A1. B. Received in formalin labeled "Tracy Reddy Sr, gastritis rule out H. pylori" is a 0.6 x 0.5 x 0.1 cm aggregate of zambrano-brown soft tissue. The specimen is submitted in cassette B1. C. Received in formalin labeled "Tracy Rdedy Sr, random colon biopsy rule out colitis" is a 1.4 x 0.6 x 0.1 cm portion of zambrano-brown soft tissue. The specimen is submitted in cassette C1. ([facility]; 06/16/2017) [address] [address] SURGICAL PATH RPT PROCEDURE Name: TRACY REDDY RODOLFO Room #: REG [facility]#: [id number] Admission: 06/16/17 Date of : 32 Discharge: Report #: [id number] Path Case #: [id number] CLINICAL HISTORY: Diarrhea, black stools, GERD, history of ulcers, gastritis, history of polyps, diarrhea. INITIAL CPT CODE(S): A; 75367 B; 53835, 08515 C; 63150 Professional services performed by [facility] at [address], [place] [address] Technical services performed by [facility] at [address] [place] [address], [address], [place] [address]. [facility] [address] [address] PHONE: [phone] DIRECTOR: Bhargav Garcia M.D. * * * END OF REPORT * * *
--- NOTE | ~2017-06-16 | P ---
[facility] [place] [address] PROCEDURE REPORT Name: TRACY REDDY Room #: REG [facility]#: [id number] Admission: 06/16/17 Attend Phys: Mario Alberto Diaz MD Discharge: Date of : 32 Report #: [id number] THIS REPORT FOR: //name// CC: Mario Alberto Mondragon MD BRIEF HISTORY: The patient is an 87-year-old male who has a history of colon polyps. PREOPERATIVE DIAGNOSES: He is having problems with diarrhea and fecal incontinence. POSTOPERATIVE DIAGNOSES: He is having problems with diarrhea and fecal incontinence with normal colonoscopy. MEDICATIONS: Deep sedation with propofol per anesthesia. SPECIMEN: Random biopsy of the colon, rule out colitis. ESTIMATED BLOOD LOSS: 3 mL. PROCEDURE: Colonoscopy to cecum and terminal ileum with biopsy. FINDINGS: Prior to propofol sedation, procedure of colonoscopy discussed with the patient as well as potential risks, benefit, and complications. He indicates he understands and desires to proceed. With the patient in left lateral decubitus position, digital examination was completed, which revealed no abnormalities. Subsequently, the Brozengo video colonoscope was introduced in the rectum, advanced under direct vision to the cecum. Done with minimal difficulty. The cecum was identified by the ileocecal valve and the appendiceal orifice. I was able to visualize the distal segment of terminal ileum, which was inspected and noted to be unremarkable. At that point, the scope was slowly withdrawn and careful circumferential views were obtained. Upon slow withdrawal of the scope, the prep was noted to be excellent. The mucosa was within normal limits, normal vascular pattern, and normal light reflex. No neoplastic lesions were seen at any time during this examination. Inflammatory changes were not seen. Bleeding lesions were not seen. Vascular ectasias were not seen. He had a normal examination of the distal terminal ileum and the entire colon. The scope was withdrawn in the rectum. Upon retroflexion, no abnormalities were seen. Random biopsies were obtained about the colon to evaluate for microscopic colitis. Scope was withdrawn. The patient tolerated the procedure well. [address] [address] PROCEDURE REPORT Name: TRACY REDDY Room #: REG [facility]#: [id number] Admission: 06/16/17 Attend Phys: Mario Alberto Diaz MD Discharge: Date of : 32 Report #: [id number] CONDITION OF THE PATIENT UPON DISCHARGE: Following procedure, the patient drowsy, aroused, conversant and will be discharged home when fully ambulatory. INSTRUCTIONS TO THE PATIENT AND FAMILY AT THE TIME OF DISCHARGE: I do not find evidence of a bleeding lesion or source of blood loss. No neoplastic lesions were seen. At this point in life, he is not likely to benefit from continued routine surveillance colonoscopy. As for the diarrhea, we will follow up on biopsies taken today. He should continue his cholestyramine, which he reports has been beneficial. As far as the black stools, I do not see evidence of bleeding lesions. He should have his hemoglobin monitored and if he has black stools, obtain a stool for Hemoccult. If there is evidence of ongoing or further blood loss, an M2 capsule study would be the next consideration. He should follow up with Dr. Silas Mondragon and Dr.Lillard Benavides. He may resume his Eliquis either later today or tomorrow morning. <ELECTRONICALLY SIGNED> By: Mario Alberto Diaz MD 06/17/17 1533 0825 0930 Mario Alberto Diaz MD /nt
== END | disposition home or self-care (01) ==
LOC: GI 06:31
DX: R15.9 Full incontinence of feces (principal); R19.7 Diarrhea, unspecified; K29.50 Unspecified chronic gastritis without bleeding; Z86.010 Personal history of colon polyps; I48.91 Unspecified atrial fibrillation; K21.9 Gastro-esophageal reflux disease without esophagitis; I26.99 Other pulmonary embolism without acute cor pulmonale; Z87.891 Personal history of nicotine dependence; I10 Essential (primary) hypertension; E78.00 Pure hypercholesterolemia, unspecified; Z98.890 Other specified postprocedural states; M17.0 Bilateral primary osteoarthritis of knee
CPT/HCPCS: 62110; 62900

== ENCOUNTER 2017-07-03 00:24 | Emergency (ER) | payer OTHER ==
[~2017-07-03] VITALS: Ht 172.7 cm; Wt 108.9 kg
[2017-07-03 01:29] LABS: ABSOLUTE NEUTROPHILS 2.4 thou/uL (1.4-8.2); BASOPHILS 0.4 % (0.0-2.0); EOSINOPHILS 2.9 % (0.0-3.0); HEMATOCRIT 41.5 % (42.0-52.0); HEMOGLOBIN 14.4 gm/dL (14.0-18.0); LYMPHOCYTES 41.2 % (24.0-44.0); MCH 32.7 pg (26.0-34.0); MCHC 34.7 g/dL (28.0-37.0); MCV 94.2 fL (80.0-100.0); MONOCYTES 8.4 % (1.0-8.0); PLATELET COUNT 182 thou/uL (150-400); POLYS 47.1 % (36.0-66.0); RBC 4.41 mil/uL (4.50-6.00); RDW 13.7 % (10.5-14.5); WBC 5.2 thou/uL (4.0-11.0)
[2017-07-03 01:35] LABS: CALCIUM 9.5 mg/dL (8.5-10.1); CREATININE 1.3 mg/dL (0.7-1.3); POTASSIUM 3.5 mmol/L (3.5-5.1)
[2017-07-03 01:41] LABS: ALBUMIN 3.4 g/dL (3.4-5.0); TOTAL BILIRUBIN 0.4 mg/dL (<0.1-1.0); TOTAL PROTEIN 7.6 g/dL (6.4-8.2)
[2017-07-03 01:42] LABS: INR 1.1; PROTIME 11.4 Seconds (9.3-11.4)
[2017-07-03 05:26] VITALS: BP 130/71
== END 2017-07-03 05:27 | disposition home or self-care (01) ==
LOC: ER 00:24
PROVIDERS: Emergency Medicine
DX: I73.9 Peripheral vascular disease, unspecified (principal); I10 Essential (primary) hypertension; I48.91 Unspecified atrial fibrillation; G47.33 Obstructive sleep apnea (adult) (pediatric); K21.9 Gastro-esophageal reflux disease without esophagitis; M10.9 Gout, unspecified

== ENCOUNTER → 2018-11-06 | Outpatient (CLI) | payer OTHER | LOC: ULTRA 10:39 | DX: I74.3 Embolism and thrombosis of arteries of the lower extremities (principal); I73.9 Peripheral vascular disease, unspecified ==

== ENCOUNTER → 2019-09-10 | Outpatient (CLI) | payer OTHER | LOC: RAD 10:33 | DX: J45.20 Mild intermittent asthma, uncomplicated (principal) ==

== ENCOUNTER 2021-03-20 23:05 | Inpatient (IN) | payer OTHER ==
[~2021-03-20] VITALS: Ht 170.2 cm; Wt 84.6 kg
--- NOTE | ~2021-03-20 | EMS ---
[address] [address] EMS Patient Care Report Name: TRACY REDDY Room #: 461-P ADM IN M.R.#: [id number] Admission: 03/21/21 Attend Phys: Hernan Mcdonald MD Discharge: Date of : 32 Report #: [id number] THIS REPORT FOR: //name// Report Transmitted: 03/23/2021 15:11 EMS Care Summary MONE CHIANG Incident [id number] @ 03/20/2021 22:11 Incident Location [address] [facility] [place] [address] Patient Tracy Reddy Male, 89 Years 1930 Patient Address [address] [place] [address] Patient History Atrial Fibrillation,Cardiac Condition - Other,Angina,Attention-deficit hyperactivity disorder, predominantly inattentive type,Gout,Anxiety disorder, unspecified,Personal history of other diseases of the digestive system,Cancer, Unspecified, Patient Allergies No known allergies, Patient Medications Allopurinol, bicalutamide, Colace, Eliquis, Glucosamine, Xalatan, Nitroglycerin, Torsemide, Tylenol, Voltaren, Chief Complaint Nausea Disposition Transported No Lights/[place] Dis[place] Reason Sick Person Transported To [facility] Narrative [address] [address] EMS Patient Care Report Name: TRACY REDDY Room #: 461-P ADM IN M.R.#: [id number] Admission: 03/21/21 Attend Phys: Hernan Mcdonald MD Discharge: Date of : 32 Report #: [id number] RESPONDED TO [facility] ROOM 508A REFERENCE AN 89 YEAR OLD MALE WHO VOMITED. 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 THEY REPORT THAT HE ACTIVATED THE EMERGENCY SYSTEM. WE FOUND ABY STANDING WITH HIS WALKER, HE IS AWAKE AND ALERT. HE COMPLAINS OF AN UPSET STOMACH. HE CONFIRMED THAT HE DID INDEED VOMIT TWICE AND WISHES TO BE TRANSPORTED TO THE EMERGENCY DEPARTMENT FOR EVALUATION. HE REPORTS THAT HE VOMITED IN THE BATHROOM. HE REPORTS THAT THE FOOD HAS CHANGED AT [facility] AND THE TASTE IS BAD. HE ENIES OTHER COMPLAINTS. HE WAS ABLE TO WALK TO THE COT AND SAT DOWN. WE SECURED HIM TO THE COT USING ALL OF THE REQUIRED RESTRAINT DEVICES. A DETAILED EXAM AND ASSESSMENT WAS DONE. THE FINDINGS OF THE ASSESSMENT ARE DOCUMENTED IN THIS REPORT. WE WHEELED HIM TO THE APPARATUS.WE LOADED HIM. A SECONDARY ASSESSMENT WAS DONE. VITALS WERE MONITORED ENROUTE TO THE EMERGENCY DEPARTMENT. AT [facility], WE UNLOADED ABY FROM THE UNIT. WE WHEELED HIM TO ER ROOM 8. I REPORTED TO HIS RN. ABY'S CARE WAS RELEASED TO [facility]. Initial Vitals @22:29SpO2: 97, @22:42SpO2: 98, @22:52SpO2: 99, @22:28P: 62,R: 18,BP: 133/69, @22:38P: 67,R: 20,BP: 145/77, @22:48P: 66,R: 18,BP: 140/68, @22:56P: 66,R: 18,BP: 135/70, @22:28GCS: 15, @22:38GCS: 15, @22:48GCS: 15, @22:56GCS: 15, Assessments @22:17MENTAL:SKIN:HEENT:LUNG SOUNDS:ABDOMEN:PELVIS//GI:EXTREMITIES:PULSE:NEURO: Impression Vomiting Timeline 22:00,Call Received 22:11,Dispatch Notified 22:11,Psap Call 22:11,Dispatched 22:12,En Route 22:16,On Scene 22:17,At Patient 22:28,BP: 133/69 M,PULSE: 62,RR: 18 R,SPO2: Ox,ETCO2: ,BG: ,PAIN: ,GCS: , [facility] [address] [place] [address] EMS Patient Care Report Name: TRACY REDDY Room #: 461-P ADM IN [facility]#: [id number] Admission: 03/21/21 Attend Phys: Hernan Mcdonald MD Discharge: Date of : 32 Report #: [id number] 22:28,BP: / M,PULSE: ,RR: R,SPO2: Ox,ETCO2: ,BG: ,PAIN: ,GCS: 15, 22:29,BP: / M,PULSE: ,RR: R,SPO2: 97 Ox,ETCO2: ,BG: ,PAIN: ,GCS: , 22:29,Depart Scene 22:38,BP: 145/77 M,PULSE: 67,RR: 20 R,SPO2: Ox,ETCO2: ,BG: ,PAIN: ,GCS: , 22:38,BP: / M,PULSE: ,RR: R,SPO2: Ox,ETCO2: ,BG: ,PAIN: ,GCS: 15, 22:42,BP: / M,PULSE: ,RR: R,SPO2: 98 Ox,ETCO2: ,BG: ,PAIN: ,GCS: , 22:48,BP: 140/68 M,PULSE: 66,RR: 18 R,SPO2: Ox,ETCO2: ,BG: ,PAIN: ,GCS: , 22:48,BP: / M,PULSE: ,RR: R,SPO2: Ox,ETCO2: ,BG: ,PAIN: ,GCS: 15, 22:52,BP: / M,PULSE: ,RR: R,SPO2: 99 Ox,ETCO2: ,BG: ,PAIN: ,GCS: , 22:56,BP: 135/70 M,PULSE: 66,RR: 18 R,SPO2: Ox,ETCO2: ,BG: ,PAIN: ,GCS: , 22:56,BP: / M,PULSE: ,RR: R,SPO2: Ox,ETCO2: ,BG: ,PAIN: ,GCS: 15, 23:01,At Destination 23:13,Call Closed Disclaimer v1.1 Copyright 2020 [employer] This EMS Care Summary contains data elements from the applicable legal record (which may be displayed differently). It is designed to provide pertinent information for the following purposes: continuity of care, clinical quality, and state data reporting. The complete legal record is available to ED staff and administrators of the receiving hospital in [employer] Patient Tracker. All data is provided "as is."
[2021-03-20 23:39] LABS: CALCIUM 9.5 mg/dL (8.5-10.1); CREATININE 1.6 mg/dL (0.7-1.3); POTASSIUM 3.2 mmol/L (3.5-5.1)
[2021-03-20 23:42] LABS: ABSOLUTE NEUTROPHILS 3.1 thou/uL (1.4-8.2); BASOPHILS 1.1 % (0.0-2.0); EOSINOPHILS 2.6 % (0.0-3.0); HEMATOCRIT 38.5 % (42.0-52.0); HEMOGLOBIN 12.8 gm/dL (14.0-18.0); LYMPHOCYTES 29.2 % (24.0-44.0); MCH 32.6 pg (26.0-34.0); MCHC 33.1 g/dL (28.0-37.0); MCV 98.5 fL (80.0-100.0); MONOCYTES 5.1 % (1.0-8.0); PLATELET COUNT 173 thou/uL (150-400); RBC 3.91 mil/uL (4.50-6.00); RDW 13.5 % (10.5-14.5)
[2021-03-20 23:45] LABS: ALBUMIN 3.5 g/dL (3.4-5.0); TOTAL BILIRUBIN 0.6 mg/dL (0.2-1.0); TOTAL PROTEIN 8.2 g/dL (6.4-8.2)
[2021-03-21 00:28] LABS: URINE BILIRUBIN NEGATIVE (Negative); URINE BLOOD NEGATIVE (Negative); URINE CLARITY CLEAR; URINE COLOR YELLOW; URINE GLUCOSE-RANDOM* NEGATIVE (Negative); URINE KETONES NEGATIVE (Negative); URINE LEUKOCYTES-REFLEX NEGATIVE (Negative); URINE NITRITE-REFLEX NEGATIVE (Negative); URINE PROTEIN (DIPSTICK) NEGATIVE (Negative); URINE UROBILINOGEN 0.2 E.U./dl (0.2-1.0)
[2021-03-21 05:51] LABS: APTT 27.6 Seconds (24.5-32.8); INR 1.18; PROTIME 12.8 Seconds (10.5-12.1)
[2021-03-21 09:10] VITALS: BP 139/68
[2021-03-21 16:52] VITALS: BP 125/72
--- NOTE | 2021-03-21 17:36 | NUR ---
PT ARRIVED TO FLOOR FROM ED PER CART AROUND 9AM IN STABLE CONDITION.ADMISSION HX, ASSESSMENT AND CAREPLAN COMPLETED. PT NOTIFIED HIS FAMILY ABOUT TRANSFERED FROM ED TO 461. DR SUGGS AND CHRIS HERE,ORDER NOTED.HEPARIN GTT IN PROGRESS. APTT DONE AT 1330 BUT RESULTED ONE HOUR LATER.HEPARIN RATE ADJUSTED AT 1430 PER PROTOCOL TO 17U/KG/HR. TELE MONITOR APPLIED. PT UP TO BSC TO URINATE.PT APPEARS TO BE NEEDY.PT HAS CADET IN HIS WALLET AND REFUSED TO DISCLOSE AMOUNT AND SENT TO SECURITY TO0 KEEP. HE SAID HE WILL GIVEN IT TO HIS SON WHENEVER COMES TO VISIT.RN SAID IF IT GET LOST, HOSPITAL WILL NOT BE RESPOCSIBLE SINCE HE REFUSED FOLLOWING THE PROTOCOL. PT AGREED. NO FURTHER C/O AT PRESENT. WILL CONTINUE TO MONITOR. DISCLONO FURTHER C/O AT PRESENT. WILL CONTINUE T
--- NOTE | 2021-03-21 21:00 | NUR ---
PATIENT C/O PAIN MANAGED WITH PRN IVP MEDICATION WITH GOOD RESULTS.
--- NOTE | 2021-03-21 21:58 | NUR ---
CRITICAL RESULT CALLED FOR APTT. TITRATED PER PROTOCOL.
[2021-03-21 22:26] VITALS: BP 139/71
[2021-03-22 05:25] LABS: HEMATOCRIT 34.7 % (42.0-52.0); HEMOGLOBIN 11.6 gm/dL (14.0-18.0); MCH 32.9 pg (26.0-34.0); MCHC 33.4 g/dL (28.0-37.0); MCV 98.5 fL (80.0-100.0); RBC 3.52 mil/uL (4.50-6.00); RDW 13.7 % (10.5-14.5); WBC 4.5 thou/uL (4.0-11.0)
[2021-03-22 05:38] LABS: CREATININE 1.3 mg/dL (0.7-1.3); POTASSIUM 3.1 mmol/L (3.5-5.1)
[2021-03-22 08:30] VITALS: BP 134/60
--- NOTE | 2021-03-22 08:47 | NUR ---
CRITICAL RESULT CALLED FOR APPT. PATIENT ON CONTINUOUS HEPARIN GTT. TITRATED PER PROTOCOL.
--- NOTE | 2021-03-22 08:51 | NUR ---
PATIENT ALERT AND ORIENTED. PATIENT BRADYCARDIC DURING SLEEP LOWEST HR NOTED TO BE HIGH 30s BUT NOT SUSTAINED. PATIENT ON 2L NC AT HS FOR VEE AND COMFORT. CONTINUOUS HEP GTT TITRATED PER PROTOCOL AND MAINTENANCE IVF.
[2021-03-22 13:53] VITALS: BP 134/60
--- NOTE | 2021-03-22 14:31 | HC ---
[facility] [place] [address] CONSULTATION Name: TRACY REDDY Room #: 461-P ADM IN M.R.#: [id number] Admission: 03/21/21 Attend Phys: Hernan Mcdonald MD Discharge: Date of : 32 Report #: [id number] THIS REPORT FOR: cc: Silas Mondragon MD, William MD McElhinney, Christian C. MD ~ cc: Hernan Mcdoanld MD, Brian Spencer MD DATE OF SERVICE: 03/21/2021 HISTORY OF PRESENT ILLNESS: The patient is an 89-year-old male who is a fair historian, lives in a custodial, reportedly had an episode of abdominal pain with nausea and vomiting yesterday. 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 Dr. Spencer with general surgery has been consulted and is pending at this time. The patient denies any further abdominal pain or nausea or vomiting at this time. I asked the patient several times if he has been having predictable pain after eating and he again is a fair historian. It appears he has some pain at times, but there is no specific pattern. He also has reported weight loss of approximately 40 pounds over the last year prior to coming into the custodial. He does have a history of vascular disease, possible history of DVT in the past. I was able to review all records. He had a femoral artery thrombosis hospitalization within the last [address] [facility] Diaz, my previous partner, did an EGD and colonoscopy on the patient in 2018, which was essentially normal. At that time, the patient was having diarrhea and fecal incontinence. He denies any diarrhea at this time. He denies any obvious blood in his stools. He denies any chest pain currently or shortness of breath. No dysphagia, no nausea or vomiting today. He has been on anticoagulation therapy. PAST MEDICAL HISTORY: Previous history of DVT; history of right femoral artery thrombosis, status post thrombectomy; prostate cancer, status post radiation; hypertension; benign prostatic hypertrophy, status post TURP; history of AFib; arthritis; glaucoma; gastroesophageal reflux disease; previous cataract surgery; previous history of diverticulitis; atrial fibrillation. MEDICATIONS: On admission, Aldactone, diazepam, Nitrostat, Tylenol, hydrochlorothiazide, Xalatan eyedrops, Flovent, Combivent, allopurinol, omeprazole on a p.r.n. basis, Eliquis, OxyIR, glucosamine, cholestyramine. REVIEW OF SYSTEMS: Limited, but as per HPI. FAMILY HISTORY: Negative for colon cancer. SOCIAL HISTORY: Denies any tobacco or alcohol use at this time. [address] [address] CONSULTATION Name: TRACY REDDY Room #: 461-P [facility] IN M.R.#: [id number] Admission: 03/21/21 Attend Phys: Hernan Mcdonald MD Discharge: Date of : 32 Report #: [id number] PHYSICAL EXAMINATION: VITAL SIGNS: Temperature is 36.9, pulse 89, blood pressure 139/68, respiratory rate is 19. GENERAL: He is alert and oriented x 3, in no acute distress. HEENT: Sclerae nonicteric. Oropharynx clear. NECK: Supple, without lymphadenopathy. CARDIOVASCULAR: Regular rate. CHEST: Clear to auscultation anteriorly bilaterally. ABDOMEN: Soft. He is nontender, nondistended. Normoactive bowel sounds. EXTREMITIES: No cyanosis, clubbing or edema. LABORATORY DATA: WBC 5.0, hemoglobin 12.8, platelet count is 173. INR 1.18. Sodium 133, potassium 3.2, chloride 98, bicarbonate 28, BUN 24, creatinine 1.6, glucose 134. Lactic acid level 1.4. Calcium 9.5. Total bilirubin 0.6. AST 31, ALT 21, alkaline phosphatase 88. Total protein 8.2, albumin 3.5, lipase 174. ASSESSMENT AND PLAN: Recent episode of nausea, vomiting, abdominal pain. 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 He has a previous history of vascular disease and has been on Eliquis. Difficult to determine if he has been having chronic pain after eating, which is typically seen with mesenteric stenosis. He has, however, had some pain and weight loss. Agree with surgery consultation, which is pending at this time. May need to consider interventional radiology for further evaluation and possible stent placement. He is currently without any nausea, vomiting or abdominal pain. The patient has had an EGD and colonoscopy 3 years ago, both of which were essentially negative. He does take omeprazole. I do not think a repeat upper endoscopy is needed at this point. Thank you for allowing me to participate in his care. <ELECTRONICALLY SIGNED> By: Jaycob Castro MD 03/22/21 1431 1156 1313 Jaycob Castro MD /nt
[2021-03-22 21:01] VITALS: BP 151/70
[2021-03-23 00:06] VITALS: BP 133/51
[2021-03-23 04:30] VITALS: BP 152/71
--- NOTE | 2021-03-23 07:40 | NUR ---
patient aox4 makes needs known. patient is on heparin drip no changes x2. patient denied pain or discomfort. fall precaution in place. scd on. patient in bed asleep at this time breathing regular and unlaboured.
[2021-03-23 07:52] VITALS: BP 129/65
[2021-03-23 11:30] VITALS: BP 136/70
--- NOTE | 2021-03-23 15:14 | NUR ---
ASSUMED PT CARE THIS AM. PT A&OX4, ABLE TO MAKE NEEDS KNOWN. PATIENT REPORTING NO PAIN. PATIENT HAS REMAINED NPO FOR ANGIOGRAM THIS SHIFT. PATIENT ON A HEPARIN DRIP, CHECKING APTT AT NEEDED PER FLOWSHEET. PATIENT ON ROOM AIR. IV REMAINS PATENT. PATIENT ON TELE. FALL PRECAUTIONS ARE IN PLACE, CALL LIGHT WITHIN REACH. PATIENT HAS BEEN CONTINENT AND INCONTINENT THIS SHIFT.
--- NOTE | 2021-03-23 16:35 | NUR ---
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 CM REVIEWED CHART AND SPOKE WITH CARE TEAM. CM MET WITH PT AND DTR AT BEDSIDE THIS DAY. PT APPEARED TO BE A&O X4. CM ROLE INTRODUCED. PT INDICATED THAT HE LIVES IN LTC AT [facility] WITH HIS SPOUSE MARKIE. 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 PT INDICATED HE HAD BEEN IN FACILITY SINCE JULY. PT'S C[facility]. DTR AND PT EXPRESSED SOME CONCERNS ABOUT COMMUNICATION AND CARES AT FACILITY CM ATTEMTEPD TO NOTIFY [facility]. CM ALSO REACHED OUT TO [facility] WITH [employer] TO SEE PT AND DTR ABOUT STATUS OF POSSIBLE MEDICAID APPLICATION. PT INDICATED HE PLANS TO RETURN TO [facility] ONCE MEDICALLY STABLE. PT WENT FOR ANGIOGRAM WITH INTERVENTION THIS AFTERNOON. PT TO TRANSFER TO CCU POST PROCEDURE. CM FOLLOWING.
[2021-03-23 18:30] VITALS: BP 134/60
[2021-03-23 19:30] VITALS: BP 151/53
--- NOTE | 2021-03-24 03:02 | NUR ---
ASSUMED CARE OF PT AT 1900. PT ALERT AND ORIENTED X3. PT ON BEDREST PER PROTOCOL. PT C/O CRAMPS ON BILATERAL LEGS. SON AT BEDSIDE UNTIL 2099. ASSESSMENT DONE S/P SHEATH REMOVAL. WILL CONTINUE TO MONITOR.
[2021-03-24 03:30] VITALS: BP 151/60
[2021-03-24 05:50] LABS: HEMOGLOBIN 12.3 gm/dL (14.0-18.0); MCH 32.9 pg (26.0-34.0); MCHC 33.2 g/dL (28.0-37.0); MCV 99.1 fL (80.0-100.0); RBC 3.74 mil/uL (4.50-6.00); WBC 4.7 thou/uL (4.0-11.0)
[2021-03-24 06:05] LABS: CALCIUM 9.2 mg/dL (8.5-10.1); CREATININE 1.4 mg/dL (0.7-1.3); POTASSIUM 3.6 mmol/L (3.5-5.1)
--- NOTE | 2021-03-24 07:10 | EKG ---
[address] [address] ELECTROCARDIOGRAM REPORT Name: TRACY REDDY RODOLFO Room #: 214- ADM IN M.R.#: [id number] Admission: 03/21/21 Attend Phys: Hernan Mcdonald MD Discharge: Date of : 32 Report #: [id number] [facility] ED Test Date: 2021-03-21 Test Time: 02:24:35 Pat Name: TRACY REDDY Department: Room: 214 Gender: M Review Scheduling Coordinator: silver : 1930 Requested By: Segundo Calderon Order Number: [id number] MD: Tye Mcpherson Measurements Intervals [place] Rate: 64 P: [place]: QRS: -22 QRSD: 104 T: -14 QT: 446 QTc: 461 Interpretive Statements Atrial fibrillation Borderline left axis deviation Abnormal R-wave progression, early transition Borderline T abnormalities, inferior leads Compared to ECG 12/20/2016 23:55:41 T-wave abnormality now present Electronically Signed On 03-24-2021 7:10:09 [employer] MACHINE TENDER by Tye Mcpherson [email or web address] <ELECTRONICALLY SIGNED> By: yTe Mcpherson MD, [facility] 03/24/21 0710 3 Tye Mcpherson MD, [facility] /EPI
--- NOTE | 2021-03-24 07:11 | EKG ---
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: CINDYK : 1930 Requested By: Hernan Mcdonald Order Number: [id number] MD: Tye Mcpherson Measurements Intervals [place] Rate: 45 P: SD: QRS: -12 QRSD: 104 T: -1 QT: 470 QTc: 407 Interpretive Statements Atrial fibrillation Borderline low voltage, extremity leads Compared to ECG 03/21/2021 02:24:35 T-wave abnormality no longer present Electronically Signed On 03-24-2021 7:11:36 [employer] by Tye Mcpherson [email or web address] <ELECTRONICALLY SIGNED> By: Tye Mcpherson MD, [facility] 03/24/21 0711 1239 1239 Tye Mcpherson MD, [facility] /EPI
[2021-03-24 08:00] VITALS: BP 129/53
--- NOTE | 2021-03-24 10:53 | NUR ---
met with patient who resides at ltc at [facility]. He reports his is there as well. She uses a wc. He uses a rolator walker. He reports he transferred to CCU from another unit and walker left on other unit. Inquiring into location of walker. [facility] and now private pay. Therapy evals in process. Sent updates for review tenative plan return with skilled therapy. Patient reports children are assisting with meeting with realator to sell home. SP with phys. benmgt following.
[2021-03-24] MEDS ORDERED: CLOPIDOGREL75 MG PO (10:56)
[2021-03-24 12:00] VITALS: BP 138/63
[2021-03-24 16:00] VITALS: BP 132/51
[2021-03-24 20:25] VITALS: BP 166/68
--- NOTE | 2021-03-25 02:12 | NUR ---
ASSESSMENTS CHARTED, MEDS CHARTED GIVEN. PATIENT RESTING IN BED DURING SHIFT. CONDOM CATH HAD BECOME DISCONNECTED, BED WAS WET AND HIS SUPPORT HOSE HAD WET HEELS. REMOVED TO DRY. C/O PAIN IN RIGHT FOOT. PLAN OF CARE IS TO GO HOME IN AM. GAVE REPORT TO AMANDA AT 0100.
[2021-03-25 05:45] VITALS: BP 139/70
[2021-03-25 12:00] VITALS: BP 126/61
--- NOTE | 2021-03-25 14:33 | NUR ---
ASSUMED CARE OF PT AT 0730 PT IS VERY ANXIOUS AND WANTS TO SPEAK TO CASE MANAGEMENT HE INSISTED THAT HE BE TAKEN TO THE BATHROOM TO PROVE THAT HE CAN WALK FOR WHEN HE GETS BACK HOME. HE IS NOT SAFE!!!!!! IT TOOK THE AID AND I 15 MINUTES TO GET HIM FROM THE CHAIR TO THE BATHROOM, HE WALKS VERY SLOWLY AT A 90 DEGREE ANGLE AND ARGUES THE ENTIRE TIME. HE SHOULD ONLY BE ALLOWED TO GO TO A BEDSIDE COMMODE DUE TO SAFETY CONCERNS.
[2021-03-25 16:30] VITALS: BP 143/58
--- NOTE | 2021-03-25 17:23 | NUR ---
Spoke with patient reviewing plan return to [facility] with skilled post acute care. Patient in agreement. Updated son [phone]. He was in agreement of plan. Faxed clinical update.
[2021-03-25 20:19] VITALS: BP 144/73
[2021-03-26 03:27] VITALS: BP 123/52
[2021-03-26 07:45] VITALS: BP 128/40
[2021-03-26 11:25] VITALS: BP 120/40
--- NOTE | 2021-03-26 14:13 | NUR ---
took over care of patient at 1300. patient resting in recliner at this time. patient on room air, denies soa at this time. denies pain at this time. patients only needs are helping with his personal items from home. fall precautions in place and call light within reach. will continue to monitor; assessments as charted. plan to discharge to [facility] this afternoon; awaiting wheelchair transportation.
[2021-03-26 15:45] VITALS: BP 113/67
--- NOTE | 2021-03-26 16:26 | NUR ---
THIS NURSE HAS ATTEMPTED TO CALL [facility] TWICE TO GIVE REPORT BUT NURSE DID NOT ANSWER PHONE EITHER TIME. SAT ON HOLD FOR 15 MINUTES EACH.
--- NOTE | 2021-03-26 16:27 | NUR ---
Enrique has auth for post acute care. [facility] for [phone]. Left son a message. Patient in agreement with dc. Chart copied. Rn to call report. No further needs
--- NOTE | 2021-03-26 17:46 | NUR ---
ASSISTED PATIENT IN GETTING DRESSED, TOOK OUT IVS, AND REMOVED HEART MONITOR FOR DISCHARGE. AWAITING TRANSPORTATION.
== END 2021-03-26 18:21 | DRG 356 ==
LOC: ER 23:05 → EROBS 03-21 05:18 → 2N 03-21 05:18 → 4W 03-21 05:18 → 2N 03-23 18:25
PROVIDERS: Emergency Medicine; Nurse Practitioner; Nurse Practitioner Family; ADMIT Hospitalist; ATTEND Hospitalist
PROC: B41D1ZZ Fluoroscopy of Aorta and Bilateral Lower Extremity Arteries using Low Osmolar Contrast (ICD-10-PCS; principal; 2021-03-23)
PROC: B4141ZZ Fluoroscopy of Superior Mesenteric Artery using Low Osmolar Contrast (ICD-10-PCS; principal; 2021-03-23)
PROC: 04753DZ Dilation of Superior Mesenteric Artery with Intraluminal Device, Percutaneous Approach (ICD-10-PCS; principal; 2021-03-23)
PROC: B4181ZZ Fluoroscopy of Bilateral Renal Arteries using Low Osmolar Contrast (ICD-10-PCS; principal; 2021-03-23)
PROC: B4151ZZ Fluoroscopy of Inferior Mesenteric Artery using Low Osmolar Contrast (ICD-10-PCS; principal; 2021-03-23)
DX: K55.019 Acute (reversible) ischemia of small intestine, extent unspecified (principal); N17.0 Acute kidney failure with tubular necrosis; I77.4 Celiac artery compression syndrome; E87.6 Hypokalemia; I73.9 Peripheral vascular disease, unspecified; K55.1 Chronic vascular disorders of intestine; I10 Essential (primary) hypertension; I48.91 Unspecified atrial fibrillation; K21.9 Gastro-esophageal reflux disease without esophagitis; G47.33 Obstructive sleep apnea (adult) (pediatric); M17.0 Bilateral primary osteoarthritis of knee; M10.9 Gout, unspecified; G47.00 Insomnia, unspecified; Z20.822 Contact with and (suspected) exposure to COVID-19; F03.90 Unspecified dementia, unspecified severity, without behavioral disturbance, psychotic disturbance, mood disturbance, and anxiety; R53.81 Other malaise; E78.5 Hyperlipidemia, unspecified; S30.813A Abrasion of scrotum and testes, initial encounter; X58.XXXA Exposure to other specified factors, initial encounter; Y93.89 Activity, other specified; Y92.89 Other specified places as the place of occurrence of the external cause; Y99.8 Other external cause status; Z86.711 Personal history of pulmonary embolism; Z85.46 Personal history of malignant neoplasm of prostate; Z92.3 Personal history of irradiation; Z92.21 Personal history of antineoplastic chemotherapy; Z86.718 Personal history of other venous thrombosis and embolism; Z98.42 Cataract extraction status, left eye; Z98.41 Cataract extraction status, right eye; Z88.8 Allergy status to other drugs, medicaments and biological substances; Z87.891 Personal history of nicotine dependence; Z28.21 Immunization not carried out because of patient refusal
CPT/HCPCS: 10045; 10081

== ENCOUNTER → 2021-04-23 | Outpatient (CLI) | payer OTHER ==
[~2021-04-23] MED LIST changes: +CLOPIDOGREL75 MG PO
== END ==
LOC: SJCVCIMAG 04-16 07:13
PROVIDERS: ATTEND Nuclear Medicine Nuclear Cardiology
DX: T82.856A Stenosis of peripheral vascular stent, initial encounter (principal); I65.23 Occlusion and stenosis of bilateral carotid arteries; Z13.6 Encounter for screening for cardiovascular disorders; K55.1 Chronic vascular disorders of intestine; I10 Essential (primary) hypertension; I70.8 Atherosclerosis of other arteries; Y84.8 Other medical procedures as the cause of abnormal reaction of the patient, or of later complication, without mention of misadventure at the time of the procedure; Y92.89 Other specified places as the place of occurrence of the external cause

== ENCOUNTER → 2021-05-06 | Outpatient (CLI) | payer OTHER | LOC: SJCVC 13:54 | PROVIDERS: ATTEND Nuclear Medicine Nuclear Cardiology | DX: K55.1 Chronic vascular disorders of intestine (principal); I10 Essential (primary) hypertension; I48.91 Unspecified atrial fibrillation; I77.9 Disorder of arteries and arterioles, unspecified; E11.9 Type 2 diabetes mellitus without complications; C61 Malignant neoplasm of prostate; R60.0 Localized edema; K21.9 Gastro-esophageal reflux disease without esophagitis; M10.9 Gout, unspecified; E66.9 Obesity, unspecified; Z79.899 Other long term (current) drug therapy; Z88.8 Allergy status to other drugs, medicaments and biological substances; Z98.890 Other specified postprocedural states; Z87.891 Personal history of nicotine dependence ==